=== PATIENT | male | born 2005 | race Caucasian/White ===

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

== ENCOUNTER → 2023-01-03 | Outpatient (CLI) | payer OTHER, MEDICAID ==
[2023-01-03 20:12] LABS: FOLATE 15.86 NG/ML (>5.4)
[2023-01-03 20:13] LABS: TOTAL 25(OH) VITAMIN D 11.5 NG/ML (20.0-100.0)
[2023-01-03 20:14] LABS: THYROID STIMULATING HORMONE 2.716 uIU/ML (0.48-4.17)
[2023-01-03 20:15] LABS: RHEUMATOID FACTOR QUANT 7.1 IU/ML (<14)
== END ==
LOC: M WUC 10:20
PROVIDERS: ATTEND Psychiatry & Neurology Neurology
DX: R51.9 Headache, unspecified (principal); G47.00 Insomnia, unspecified

== ENCOUNTER → 2023-08-21 | Outpatient (REF) | payer OTHER | LOC: M LAB REF 17:07 | PROVIDERS: ATTEND Physician Assistant | DX: Z11.9 Encounter for screening for infectious and parasitic diseases, unspecified (principal) ==

== ENCOUNTER 2024-07-23 05:53 | Emergency (ER) | payer OTHER ==
[~2024-07-23] VITALS: Ht 180.3 cm; Wt 111.1 kg
[~2024-07-23 05:53] MED LIST changes: -MULT200T7 PO; +MULT200T9 PO
[2024-07-23] MEDS: DERMABOND TOPICAL SKIN ADHESIVE TOP ONE (09:15)
[2024-07-23] MEDS: BOOSTRIX VACCINE (TETANUS/DIPHTH/ACEL. PERTUSSIS) 0.5ML SYR IM ONE (09:29)
[2024-07-23 10:16] VITALS: BP 130/65; TEMP 97.5; O2SAT 98
== END 2024-07-23 10:16 | disposition home or self-care (01) ==
LOC: M ED 05:53
DX: S61.217A Laceration without foreign body of left little finger without damage to nail, initial encounter (principal); W26.0XXA Contact with knife, initial encounter; Y92.009 Unspecified place in unspecified non-institutional (private) residence as the place of occurrence of the external cause; Y93.9 Activity, unspecified; Y99.9 Unspecified external cause status

== ENCOUNTER → 2024-08-24 | Outpatient (REF) | payer OTHER ==
[2024-08-24 13:32] LABS: Trichomonas vaginalis (AMP) NOT DETECTED (NEGATIVE)
[2024-08-24 13:55] LABS: GC DNA AMPLIFICATION NEGATIVE (NEGATIVE)
[2024-08-24 15:02] LABS: BASO # 0.1 10^3/uL (0.0-0.2); BASO % 0.9 % (0.0-1.0); EOS # 0.1 10^3/uL (0.0-0.5); EOS % 1.7 % (0.0-3.0); HEMOGLOBIN 14.5 g/dl (13.5-17.5); LYMPH # 2.1 10^3/uL (1.5-5.0); LYMPH % 25.5 % (24.0-44.0); MEAN CORPUSCULAR HEMOGLOBIN 29.5 pg (27.0-33.0); MEAN CORPUSCULAR VOLUME 89.6 fl (80.0-96.0); MONO # 0.7 10^3/uL (0.0-0.8); MONO % 8.9 % (2.0-8.0); NEUTROPHILS # 5.1 10^3/uL (1.5-8.5); NEUTROPHILS % 62.6 % (36.0-66.0); PLATELET COUNT, AUTOMATED 278 10^3/uL (150-450); RED BLOOD COUNT 4.91 10^6/uL (4.30-6.10); WHITE BLOOD COUNT 8.1 10^3/uL (4.0-10.0)
[2024-08-24 15:18] LABS: HEMOGLOBIN A1c 5.1 % (4.0-6.0)
[2024-08-24 17:48] LABS: ALBUMIN 4.2 G/DL (3.2-5.2); ALKALINE PHOSPHATASE 168 U/L (40-129); ALT/SGPT 92 U/L (7.0-40); AST/SGOT 42 U/L (<34); BILIRUBIN,TOTAL 0.5 MG/DL (0.3-1.2); BLOOD UREA NITROGEN 14 MG/DL (9-23); CALCIUM LEVEL 9.4 MG/DL (8.5-10.1); CARBON DIOXIDE LEVEL 28 MMOL/L (20-31); CHLORIDE LEVEL 106 MMOL/L (98-107); CHOLESTEROL LEVEL 181 MG/DL (<200); CHOLESTEROL RISK RATIO 4.42 (<5); CREATININE FOR GFR 0.87 MG/DL (0.70-1.30); GLOMERULAR FILTRATION RATE > 90.0 (>60); GLUCOSE, FASTING 98 MG/DL (60-100); HDL CHOLESTEROL 40.9 MG/DL (>40); LDL CHOLESTEROL 110.3 MG/DL (<100); NON-HDL-C 140.1 MG/DL; POTASSIUM SERUM 4.3 MMOL/L (3.5-5.1); SODIUM LEVEL 143 MMOL/L (136-145); TOTAL PROTEIN 7.3 G/DL (5.7-8.2); TRIGLYCERIDES LEVEL 149 MG/DL (<150)
[2024-08-24 17:50] LABS: TOTAL 25(OH) VITAMIN D 6.6 NG/ML (20.0-100.0)
[2024-08-24 18:20] LABS: HIV 1&2 SCREEN NEGATIVE (NEGATIVE)
[2024-08-24 18:28] LABS: HEPATITIS C VIRUS ABY INDEX 0.02 INDEX (<0.8)
== END ==
LOC: M LAB REF 11:49
PROVIDERS: ATTEND Physician Assistant
DX: R59.0 Localized enlarged lymph nodes (principal); Z11.3 Encounter for screening for infections with a predominantly sexual mode of transmission; E55.9 Vitamin D deficiency, unspecified; E66.9 Obesity, unspecified

== ENCOUNTER → 2024-09-16 | Outpatient (CLI) | payer OTHER | LOC: M RAD 16:04 | PROVIDERS: ATTEND Physician Assistant | DX: R59.0 Localized enlarged lymph nodes (principal) ==